=== PATIENT | female | born 1965 | race Caucasian/White ===

== ENCOUNTER 2024-02-28 10:28 | Inpatient (IN) | payer SELFPAY ==
--- NOTE | 2024-02-28 10:50 | ED ---
General Adult HPI - General Chief complaint: Shortness of Breath Stated complaint: SOB Time Seen by Provider: 02/28/24 10:30 Source: patient, RN notes reviewed, old records reviewed Mode of arrival: ambulatory Limitations: no limitations - History of Present Illness Initial comments: This is a 58-year-old female presents to the emergency department stating that she has been having difficulty breathing for over a month. PCP is been placed on antibiotics breathing treatments inhalers and she has not completely resolved. Patient states she comes in today because she is significantly short of breath. Patient states she used to be a smoker but quit about a year ago. Patient denies chest pain or palpitations. Patient states she is had the chills and thinks she had a fever but never taken her temperature. Patient denies any abdominal pain patient has nausea vomiting or diarrhea. - Related Data Allergies Allergy/AdvReac Type Severity Reaction Status Date / Time prednisone Allergy Hallucinati Verified 02/28/24 10:33 ons Review of Systems ROS Statement: Those systems with pertinent positive or pertinent negative responses have been documented in the HPI. ROS Other: All systems not noted in ROS Statement are negative. Past Medical History Past Medical History: No Reported History History of Any Multi-Drug Resistant Organisms: None Reported Past Surgical History: No Surgical Hx Reported Past Psychological History: No Psychological Hx Reported Smoking Status: Former smoker Past Alcohol Use History: None Reported Past Drug Use History: None Reported General Exam - General Exam Comments Initial Comments: GENERAL: Patient is well-developed and well-nourished. Patient is nontoxic and well- hydrated and is in mild distress. ENT: Neck is soft and supple. No significant lymphadenopathy is noted. Oropharynx is clear. Moist mucous membranes. Neck has full range of motion without eliciting any pain. EYES: The sclera were anicteric and conjunctiva were pink and moist. Extraocular movements were intact and pupils were equal round and reactive to light. Eyelids were unremarkable. PULMONARY: Diffuse expiratory wheezing CARDIOVASCULAR: Patient is tachycardic at about 115 beats a minute ABDOMEN: Soft and nontender with normal bowel sounds. SKIN: Skin is clear with no lesions or rashes and otherwise unremarkable. NEUROLOGIC: Patient is alert and oriented x3. Cranial nerves II through XII are grossly intact. Motor and sensory are also intact. Normal speech, volume and content. Symmetrical smile. MUSCULOSKELETAL: Normal extremities with adequate strength and full range of motion. No lower extremity swelling or edema. No calf tenderness. LYMPHATICS: No significant lymphadenopathy is noted PSYCHIATRIC: Normal psychiatric evaluation. Limitations: no limitations Course Vital Signs 02/28/24 02/28/24 02/28/24 10:29 11:00 11:37 Temperature 98.4 F 100.4 F H Pulse Rate 115 H 108 H Respiratory 24 16 22 Rate Blood Pressure 131/82 146/76 O2 Sat by Pulse 90 L 95 Oximetry 02/28/24 02/28/24 02/28/24 11:39 11:50 13:01 Temperature 98.4 F Pulse Rate 99 90 98 Respiratory 20 20 22 Rate Blood Pressure 95/67 O2 Sat by Pulse 93 L Oximetry Medical Decision Making - Medical Decision Making EKG is interpreted by myself but EKG shows sinus tachycardia at 108 bpm CA interval 141 QRS of 76 QT interval 311 QTc is 375. Patient's EKG shows no ST segment ovation or depression. Was pt. sent in by a medical professional or institution (, PA, PROCESSING TECHNOLOGIST, urgent c are, hospital, or fdc...) When possible be specific @ -No Did you speak to anyone other than the patient for history (EMS, parent, family, police, friend...)? What history was obtained from this source @ -No Did you review nursing and triage notes (agree or disagree)? Why? @ -I reviewed and agree with nursing and triage notes Were old charts reviewed (outside hosp., previous admission, EMS record, old EKG, old radiological studies, urgent care reports/EKG's, fdc records)? Report findings @ -No old charts were reviewed Differential Diagnosis (chest pain, altered mental status, abdominal pain women, abdominal pain men, vaginal bleeding, weakness, fever, dyspnea, syncope, h eadache, dizziness, GI bleed, back pain, seizure, CVA, palpatations, mental health, musculoskeletal)? @ -Differential Dyspnea: Coronary syndrome, arrhythmia, tamponade, asthma, COPD, pulmonary embolism, pneumonia, pneumothorax, pulmonary effusion, anaphylaxis, diabetic ketoacidosis, flailed chest, pulmonary contusion, diaphragmatic rupture, anemia, neuromuscular, this is not meant to be an all-inclusive list. EKG interpreted by me (3pts min.). @ -As above X-rays interpreted by me (1pt min.). @ -Chest x-ray shows right lower lobe pneumonia CT interpreted by me (1pt min.). @ -None done U/S interpreted by me (1pt. min.). @ -None done What testing was considered but not performed or refused? (CT, X-rays, U/S, labs)? Why? @ -None What meds were considered but not given or refused? Why? @ -None Did you discuss the management of the patient with other professionals (professionals i.e. DrSalena, PA, PROCESSING TECHNOLOGIST, lab, RT, psych nurse, social services specialist, template layout worker, teacher, hazard mitigation officer, case making machine operator)? Give summary @ -Patient has pneumonia and has bad COPD exacerbation and will be admitted to Dr. Camarena Was smoking cessation discussed for >3mins.? @ -No Was critical care preformed (if so, how long)? @ -Patient received multiple breathing treatments steroids as well as antibiotics for the pneumonia Were there social determinants of health that impacted care today? How? (Homelessness, low income, unemployed, alcoholism, drug addiction, transportation, low edu. Level, literacy, decrease access to med. care, care home, rehab)? @ -No Was there de-escalation of care discussed even if they declined (Discuss DNR or withdrawal of care, Hospice)? DNR status @ -No What co-morbidities impacted this encounter? (DM, HTN, Smoking, COPD, CAD, Cancer, CVA, ARF, Chemo, Hep., AIDS, mental health diagnosis, sleep apnea, mo rbid obesity)? @ -None Was patient admitted / discharged? Hospital course, mention meds given and [place], prescriptions, significant lab abnormalities, going to OR and other pertinent info. @ -Patient initially got 2 breathing treatments and steroids. Patient also got 2 g of Rocephin for the pneumonia. Patient will be placed on inpatient IV antibiotics for the pneumonia and continue breathing treatments and steroids upstairs. Patient will be admitted to Dr. Camarena. Patient will be placed on Leva moses because she already was on Zithromax as an outpatient Undiagnosed new problem with uncertain prognosis? @ -No Drug Therapy requiring intensive monitoring for toxicity (Heparin, Nitro, Insulin, Cardizem)? @ -No Were any procedures done? @ -No Diagnosis/symptom? @ -Pneumonia Acute, or Chronic, or Acute on Chronic? @ -Acute Uncomplicated (without systemic symptoms) or Complicated (systemic symptoms)? @ -Complicated Side effects of treatment? @ -No Exacerbation, Progression, or Severe Exacerbation? @ -No Poses a threat to life or bodily function? How? (Chest pain, [place], DC, pneumonia, PE, COPD, DKA, ARF, appy, cholecystitis, CVA, Diverticulitis, Homicidal, Suicidal, threat to staff... and all critical care pts) @ -Yes this could lead to sepsis and endorgan dysfunction Diagnosis/symptom? @ -COPD exacerbation Acute, or Chronic, or Acute on Chronic? @ -Acute Uncomplicated (without systemic symptoms) or Complicated (systemic symptoms)? @ -Default Side effects of treatment? @ -Needed Exacerbation, Progression, or Severe Exacerbation] @ -Severe exacerbation Poses a threat to life or bodily function? @ -Yes this can lead to hypoxia and endorgan dysfunction - Lab Data Result diagrams: 02/28/24 11:21 02/28/24 11:21 Lab Results 02/28/24 02/28/24 02/28/24 Range/Units 11:21 11:21 11:21 WBC 7.7 (3.8-10.6) k/uL RBC 4.39 (3.80-5.40) m/uL Hgb 13.2 (11.4-16.0) gm/dL Hct 40.0 (34.0-46.0) % MCV 90.9 (80.0-100.0) fL MCH 30.0 (25.0-35.0) pg MCHC 33.0 (31.0-37.0) g/dL RDW 13.7 (11.5-15.5) % Plt Count 197 (150-450) k/uL MPV 7.6 Neutrophils % 67 % Lymphocytes % 16 % Monocytes % 9 % Eosinophils % 4 % Basophils % 1 % Neutrophils # 5.1 (1.3-7.7) k/uL Lymphocytes # 1.2 (1.0-4.8) k/uL Monocytes # 0.7 (0-1.0) k/uL Eosinophils # 0.3 (0-0.7) k/uL Basophils # 0.1 (0-0.2) k/uL PT 11.1 (10.0-12.5) sec INR 1.0 (<1.2) APTT 24.0 (22.0-30.0) sec Sodium 128 L (137-145) mmol/L Potassium 3.9 (3.5-5.1) mmol/L Chloride 95 L (98-107) mmol/L Carbon Dioxide 29 (22-30) mmol/L Anion Gap 4 mmol/L BUN 4 L (7-17) mg/dL Creatinine 0.55 (0.52-1.04) mg/dL Est GFR (CKD-EPI)AfAm >90 (>60 ml/min/1.73 sqM) Est GFR (CKD-EPI)NonAf >90 (>60 ml/min/1.73 sqM) Glucose 130 H (74-99) mg/dL Plasma Lactic Acid Piter (0.7-2.0) mmol/L Calcium 8.2 L (8.4-10.2) mg/dL Magnesium 1.8 (1.6-2.3) mg/dL Total Bilirubin 0.6 (0.2-1.3) mg/dL AST 26 (14-36) U/L ALT 19 (4-34) U/L Alkaline Phosphatase 32 L (38-126) U/L Troponin I (0.000-0.034) ng/mL NT-Pro-B Natriuret Pep 36 pg/mL Total Protein 8.0 (6.3-8.2) g/dL Albumin 3.4 L (3.5-5.0) g/dL 02/28/24 02/28/24 Range/Units 11:21 11:21 WBC (3.8-10.6) k/uL RBC (3.80-5.40) m/uL Hgb (11.4-16.0) gm/dL Hct (34.0-46.0) % MCV (80.0-100.0) fL MCH (25.0-35.0) pg MCHC (31.0-37.0) g/dL RDW (11.5-15.5) % Plt Count (150-450) k/uL MPV Neutrophils % % Lymphocytes % % Monocytes % % Eosinophils % % Basophils % % Neutrophils # (1.3-7.7) k/uL Lymphocytes # (1.0-4.8) k/uL Monocytes # (0-1.0) k/uL Eosinophils # (0-0.7) k/uL Basophils # (0-0.2) k/uL PT (10.0-12.5) sec INR (<1.2) APTT (22.0-30.0) sec Sodium (137-145) mmol/L Potassium (3.5-5.1) mmol/L Chloride (98-107) mmol/L Carbon Dioxide (22-30) mmol/L Anion Gap mmol/L BUN (7-17) mg/dL Creatinine (0.52-1.04) mg/dL Est GFR (CKD-EPI)AfAm (>60 ml/min/1.73 sqM) Est GFR (CKD-EPI)NonAf (>60 ml/min/1.73 sqM) Glucose (74-99) mg/dL Plasma Lactic Acid Piter 1.2 (0.7-2.0) mmol/L Calcium (8.4-10.2) mg/dL Magnesium (1.6-2.3) mg/dL Total Bilirubin (0.2-1.3) mg/dL AST (14-36) U/L ALT (4-34) U/L Alkaline Phosphatase (38-126) U/L Troponin I <0.012 (0.000-0.034) ng/mL NT-Pro-B Natriuret Pep pg/mL Total Protein (6.3-8.2) g/dL Albumin (3.5-5.0) g/dL Disposition Clinical Impression: Acute exacerbation of chronic obstructive pulmonary disease, Pneumonia Disposition: ADMITTED IP TO THIS HOSP Referrals: None,Stated [Primary Care Provider] - 1-2 days Time of Disposition: 14:35
[2024-02-28] MEDS: methylPREDNISolone SOD SUCCI 125 MG/2 ML VIAL IV STA (11:23)
[2024-02-28] MEDS: cefTRIAXone IN SWFI 1,000 MG/10 ML SYRINGE IVP STA ×2 (11:25→11:27)
[2024-02-28] MEDS: IBUPROFEN 600 MG TAB PO STA (11:25)
[2024-02-28] MEDS: ACETAMINOPHEN TAB 500 MG TAB PO STA (11:25)
[2024-02-28] MEDS: SODIUM CHLORIDE 0.9% 1,000 ML IV STA (11:26)
[2024-02-28 11:37] LABS: Basophils # (A) 0.1 k/uL (0-0.2); Basophils % (A) 1 %; Eosinophils # (A) 0.3 k/uL (0-0.7); Eosinophils % (A) 4 %; HGB 13.2 gm/dL (11.4-16.0); Lymphocytes # (A) 1.2 k/uL (1.0-4.8); Lymphocytes % (A) 16 %; MCV 90.9 fL (80.0-100.0); Mean Platelet Volume 7.6; Monocytes # (A) 0.7 k/uL (0-1.0); Monocytes % (A) 9 %; Neutrophils # (A) 5.1 k/uL (1.3-7.7); Neutrophils % (A) 67 %; Platelet Count 197 k/uL (150-450); RBC 4.39 m/uL (3.80-5.40); RDW 13.7 % (11.5-15.5); WBC 7.7 k/uL (3.8-10.6)
[2024-02-28] MEDS: ALBUTEROL NEBULIZED 2.5 MG/3 ML INHALATION STA (11:37)
[2024-02-28 11:48] LABS: ALT 19 U/L (4-34); AST 26 U/L (14-36); African American GFR (CKD) >90 (>60 ml/min/1.73 sqM); Albumin 3.4 g/dL (3.5-5.0); Alkaline Phosphatase 32 U/L (38-126); Anion Gap 4 mmol/L; Blood Urea Nitrogen 4 mg/dL (7-17); Calcium 8.2 mg/dL (8.4-10.2); Carbon Dioxide 29 mmol/L (22-30); Chloride 95 mmol/L (98-107); Glucose 130 mg/dL (74-99); Magnesium 1.8 mg/dL (1.6-2.3); Non-African American GFR(CKD) >90 (>60 ml/min/1.73 sqM); Potassium 3.9 mmol/L (3.5-5.1); Sodium 128 mmol/L (137-145); Total Bilirubin 0.6 mg/dL (0.2-1.3)
[2024-02-28 11:56] LABS: NT-Pro-B-Type Natriuretic Pept 36 pg/mL
[2024-02-28 12:34] LABS: Prothrombin Time 11.1 sec (10.0-12.5)
--- NOTE | 2024-02-28 12:39 | XR ---
EXAMINATION TYPE: XR chest 2V DATE OF EXAM: 02/28/2024 12:19 PM CLINICAL INDICATION:Female, 58 years old with history of difficulty breathing; [facility] COMPARISON: Done TECHNIQUE: XR chest 2V Frontal and lateral views of the chest. FINDINGS: Lungs/Pleura: Increased airspace opacities in the right lower lung. There is no evidence of pleural e ffusion, left focal consolidation, or pneumothorax. Pulmonary vascularity: Unremarkable. Heart/mediastinum: Cardiomediastinal silhouette is unremarkable. Musculoskeletal: No acute osseous pathology. IMPRESSION: Increased right lower lung airspace opacities correlate for pneumonia.
[2024-02-28] MEDS ORDERED: PNEUMONIA PROTOCOL UTILIZED 1 EACH MISC PO PRN (14:35)
[2024-02-28] MEDS ORDERED: IPRATROPIUM-ALBUTEROL 3 ML NEB INHALATION PRN (14:36)
[2024-02-28] MEDS ORDERED: NALOXONE 0.4 MG/ML 1 ML VIAL IVP PRN (14:36)
[2024-02-28] MEDS: LEVOFLOXACIN 750MG-D5W PMX 750 MG in DEXTROSE/WATER 1 150ML.BAG IVPB STA (15:07)
[2024-02-28] MEDS: IPRATROPIUM-ALBUTEROL 3 ML NEB INHALATION SCH (15:47)
[2024-02-28] MEDS: methylPREDNISolone SOD SUCCI 125 MG/2 ML VIAL IV SCH (18:30)
--- NOTE | 2024-02-29 09:03 | XR ---
EXAMINATION TYPE: XR chest 2V DATE OF EXAM: 02/29/2024 COMPARISON: 02/28/2024 INDICATION: Pneumonia TECHNIQUE: Frontal and lateral views of the chest are obtained. FINDINGS: The heart size is normal. The pulmonary vasculature is normal. Mild bibasilar infiltrates are present. Correlate for atelectasis and pneumonia. IMPRESSION: 1. Bibasilar infiltrates. Correlate for atelectasis or pneumonia. Continued follow-up is recommended.
--- NOTE | 2024-02-29 13:15 | P.HPIM ---
History of Present Illness H&P Date: 02/29/24 History of present illness; patient is a 58-year-old lady with no significant past medical history presented the ER because of shortness of breath. Patient stated that she has not been feeling well for the last 1 month. Patient has history of smoking but has never been diagnosed with any lung problem. Patient stated that she has been noticing that she is getting short of breath on exertion as is on rest. Patient also complaining of fevers and chills at home. Denies any cough. Denies any chest pain or palpitations. Because of this shortness of breath, patient saw her PCP who placed her on breathing treatments and steroids. Patient continued to worsen and decided come to the ER Initial lab work done in the ER showed WBC 7.7, hemoglobin 13.2, platelet count 197, sodium 128, potassium 3.9, BUN 4, creatinine 0.55, glucose 130, calcium 8.2, troponin 0.012, albumin 3.4 Chest x-ray done in the ER showed bibasilar infiltrates EKG done in the ER showed heart rate of , no ST segment elevation or depression seen, no T-wave inversions seen. Patient admitted to internal medicine service REVIEW OF SYSTEMS: CONSTITUTIONAL: No fever, no malaise, no fatigue. HEENT: No recent visual problems or hearing problems. Denied any sore throat. CARDIOVASCULAR: As mentioned in HPI PULMONARY: As mentioned in HPI GASTROINTESTINAL: No diarrhea, no nausea, no vomiting, no abdominal pain. NEUROLOGICAL: No headaches, no weakness, no numbness. HEMATOLOGICAL: Denies any bleeding or petechiae. GENITOURINARY: Denies any burning micturition, frequency, or urgency. MUSCULOSKELETAL/RHEUMATOLOGICAL: Denies any joint pain, swelling, or any muscle pain. ENDOCRINE: Denies any polyuria or polydipsia. The rest of the 14-point review of systems is negative. PHYSICAL EXAMINATION: GENERAL: The patient is alert and oriented x3, not in any acute distress. Well developed, well nourished. HEENT: Pupils are round and equally reacting to light. EOMI. No scleral icterus. No conjunctival pallor. Normocephalic, atraumatic. No pharyngeal erythema. No thyromegaly. CARDIOVASCULAR: S1 and S2 present. No murmurs, rubs, or gallops. PULMONARY: Chest is clear to auscultation, no wheezing or crackles. ABDOMEN: Soft, nontender, nondistended, normoactive bowel sounds. No palpable organomegaly. MUSCULOSKELETAL: No joint swelling or deformity. EXTREMITIES: No cyanosis, clubbing, or pedal edema. NEUROLOGICAL: Gross neurological examination did not reveal any focal deficits. SKIN: No rashes. Assessment and plan Acute hypoxemic respiratory failure Bacterial pneumonia COPD exacerbation History of tobacco addiction Monitor vital signs Monitor CBC Monitor CMP Continue telemetry monitoring Continue breathing treatments Start IV Solu-Medrol Start Levaquin Consult pulmonary Labs and medication were reviewed.. Continue same treatment. Continue with symptomatic treatment. Resume home medication. Monitor labs and vitals. DVT and GI prophylaxis. Further recommendations as per clinical course of the patient Dictation was produced using [employer] dictation software. please excuse any grammatical, word or spelling errors. Past Medical History Past Medical History: No Reported History History of Any Multi-Drug Resistant Organisms: None Reported Past Surgical History: No Surgical Hx Reported Past Psychological History: No Psychological Hx Reported Smoking Status: Former smoker Past Alcohol Use History: None Reported Past Drug Use History: None Reported Medications and Allergies Home Medications Medication Instructions Recorded Confirmed Type No Known Home Medications 02/28/24 02/28/24 History Allergies Allergy/AdvReac Type Severity Reaction Status Date / Time prednisone Allergy Mood swings Verified 02/28/24 15:11 Physical Exam Vitals: Vital Signs Temp Pulse Pulse Resp BP BP Pulse Ox 02/29/24 08:13 74 02/29/24 08:00 68 02/29/24 07:39 97.9 F 58 L 19 99/66 92 L 02/29/24 02:00 97.6 F 51 L 103/54 94 L 02/28/24 20:38 73 02/28/24 19:12 98.2 F 83 16 110/68 94 L 02/28/24 17:51 100 22 122/71 95 02/28/24 15:59 72 18 02/28/24 15:53 95 02/28/24 15:48 70 18 02/28/24 15:11 97.9 F 78 20 103/64 94 L 02/28/24 13:01 98.4 F 98 22 95/67 93 L 02/28/24 11:50 90 20 02/28/24 11:39 99 20 06/16/24 11:37 22 02/28/24 11:00 100.4 F H 108 H 16 146/76 95 02/28/24 10:29 98.4 F 115 H 24 131/82 90 L Intake and Output 02/28/24 02/29/24 02/29/24 22:59 06:59 14:59 Other: Voiding Method Toilet # Voids 3 Weight 68.039 kg Results CBC & Chem 7: 02/28/24 11:21 02/28/24 11:21 Labs: Abnormal Lab Results - Last 24 Hours (Table) 02/28/24 Range/Units 11:21 Sodium 128 L (137-145) mmol/L Chloride 95 L (98-107) mmol/L BUN 4 L (7-17) mg/dL Glucose 130 H (74-99) mg/dL Calcium 8.2 L (8.4-10.2) mg/dL Alkaline Phosphatase 32 L (38-126) U/L Albumin 3.4 L (3.5-5.0) g/dL Thrombosis Risk Factor Assmnt - Choose All That Apply Any of the Below Risk Factors Present?: Yes Each Factor Represents 1 point: Abnormal pulmonary function (COPD), Age 41-60 years Other Risk Factors: Yes Each Risk Factor Represents 3 Points: Family history of DVT/PE Other congenital or acquired thrombophilia - If yes, enter type in comment: No Thrombosis Risk Factor Assessment Total Risk Factor Score: 5 Thrombosis Risk Factor Assessment Level: High Risk
[2024-02-29] MEDS: LEVOFLOXACIN 750 MG TAB PO SCH (13:43)
--- NOTE | 2024-02-29 14:42 | P.CNPUL ---
History of Present Illness Consult date: 02/29/24 Requesting physician: Lefty Camarena Reason for consult: dyspnea Chief complaint: Shortness of breath, cough, congestion History of present illness: This is a pleasant 58-year-old female patient with a known history of chronic tobacco dependence of over 30 years however quit 1 year ago. She currently does not have a primary care provider. She states she has been having ongoing issues with shortness of breath, cough congestion for approximately 2 months now. Over the past several days her symptoms have become much worse and she presented here to the ER yesterday. Chest x-ray reveals evidence of bibasilar infiltrates. Possible atelectasis versus pneumonia. Count 7.7. Hemoglobin 13.2. Platelets 197. Sodium 128. Potassium 3.9. Bicarb 29. BUN 4. Creatinine 0.55. Glucose 130. Troponin negative x 1. proBNP 36. Urine Legionella antigen negative. She has been initiated on DuoNeb ventilations, Solu-Medrol and antibiotics in the form of Levaquin. She is seen in consultation on the regular medical floor. She is awake and alert in no acute distress. She does have a loose nonpr oductive cough. She did have a Tmax of 100.4. Currently afebrile. Hemodynamically stable. Review of Systems REVIEW OF SYSTEMS: CONSTITUTIONAL: Denies any recent significant weight loss or weight gain. EYES: Denies change in vision. EARS, NOSE, MOUTH, THROAT: Denies headaches, denies sore throat. CARDIOVASCULAR: Denies chest pain, palpitations or syncopal episodes. RESPIRATORY: Positive for shortness of breath, cough, congestion no hemoptysis. GASTROINTESTINAL: Denies change in appetite, denies abdominal pain GENITOURINARY: Denies hematuria, denies infections. MUSKULOSKELETAL: Denies pain, denies swelling. INTEGUMENTARY: Denies rash, denies eczema. NEUROLOGICAL: Denies recent memory loss, no recent seizure activity. PSYCHIATRIC: Denies anxiety, denies depression. HEMATOLOGIC/LYMPHATIC: Denies anemia, denies enlarged lymph nodes. Past Medical History Past Medical History: No Reported History History of Any Multi-Drug Resistant Organisms: None Reported Past Surgical History: No Surgical Hx Reported Past Psychological History: No Psychological Hx Reported Smoking Status: Former smoker Past Alcohol Use History: None Reported Past Drug Use History: None Reported Medications and Allergies Home Medications Medication Instructions Recorded Confirmed Type No Known Home Medications 02/28/24 02/28/24 History Allergies Allergy/AdvReac Type Severity Reaction Status Date / Time prednisone Allergy Mood swings Verified 02/28/24 15:11 Physical Exam Vitals: Vital Signs Temp Pulse Pulse Resp BP BP Pulse Ox 02/29/24 12:10 76 02/29/24 11:58 70 02/29/24 08:13 74 02/29/24 08:00 68 02/29/24 07:40 58 L 19 02/29/24 07:39 97.9 F 58 L 19 99/66 92 L 02/29/24 02:00 97.6 F 51 L 103/54 94 L 02/28/24 20:38 73 02/28/24 19:12 98.2 F 83 16 110/68 94 L 02/28/24 17:51 100 22 122/71 95 02/28/24 15:59 72 18 02/28/24 15:53 95 02/28/24 15:48 70 18 02/28/24 15:11 97.9 F 78 20 103/64 94 L Intake and Output 02/28/24 02/29/24 02/29/24 22:59 06:59 14:59 Other: Voiding Method Toilet Toilet # Voids 3 Weight 68.039 kg GENERAL EXAM: Alert, pleasant 58-year-old female, on 2 L nasal cannula, fairly comfortable in no apparent distress. HEAD: Normocephalic. EYES: Normal reaction of pupils, equal size. NOSE: Clear with pink turbinates. THROAT: No erythema or exudates. NECK: No masses, no JVD. CHEST: No chest wall deformity. LUNGS: Equal air entry with bilateral scattered rhonchi. CVS: S1 and S2 normal with no audible murmur, regular rhythm. ABDOMEN: No hepatosplenomegaly, normal bowel sounds, no guarding or rigidity. SPINE: No scoliosis or deformity SKIN: No rashes CENTRAL NERVOUS SYSTEM: No focal deficits, tone is normal in all 4 extremities. EXTREMITIES: There is no peripheral edema. No clubbing, no cyanosis. Peripheral pulses are intact. Results - Laboratory Findings CBC and BMP: 02/28/24 11:21 02/28/24 11:21 PT/INR, D-dimer PT 11.1 sec (10.0-12.5) 02/28/24 11:21 INR 1.0 (<1.2) 02/28/24 11:21 Abnormal lab findings: Abnormal Labs 02/28/24 11:21 Sodium 128 L Chloride 95 L BUN 4 L Glucose 130 H Calcium 8.2 L Alkaline Phosphatase 32 L Albumin 3.4 L - Diagnostic Findings Chest x-ray: image reviewed Assessment and Plan Assessment: Acute hypoxic respiratory failure secondary to an acute community-acquired pneumonia Acute exacerbation of suspected chronic obstructive pulmonary disease secondary to above Chronic tobacco dependence of greater than 30 years however quit 1 year ago Hyponatremia, suspect hypovolemic Plan: The patient was seen and evaluated Chest x-ray, labs and medications reviewed Check a procalcitonin Continue Levaquin for now Add normal saline at 75 MLS per hour Add Symbicort Continue DuoNeb inhalations Continue Solu-Medrol Titrate down the FiO2 as tolerated Would benefit from outpatient pulmonary workup including full pulmonary function testing Educated regarding the importance of acquiring a primary care provider for health maintenance I have personally seen and examined the patient, performed the documentation and the assessment and plan as written. Number of minutes spent on the visit: 20.
[2024-02-29] MEDS: SODIUM CHLORIDE 0.9% 1,000 ML IV SCH (20:06)
[2024-02-29] MEDS: SYMBICORT 160-4.5 MCG INHALER INHALATION SCH (21:27)
[2024-03-01 08:27] LABS: Basophils # (A) 0.02 X 10*3/uL (0.00-0.10); Basophils % (A) 0.1 %; Eosinophils # (A) 0 X 10*3/uL (0.04-0.35); Eosinophils % (A) 0 %; HCT 34.5 % (37.2-46.3); HGB 11.5 g/dL (12.0-15.0); Lymphocytes # (A) 1.17 X 10*3/uL (0.90-5.00); Lymphocytes % (A) 6.1 %; MCH 29.9 pg (27.0-32.0); MCHC 33.3 g/dL (32.0-37.0); MCV 89.6 FL (80.0-97.0); Mean Platelet Volume 10.1 FL (9.5-12.2); Monocytes % (A) 2.1 %; NRBC Per 100 WBC 0 X 10*3/uL (0.00-0.01); Neutrophils # (A) 17.33 X 10*3/uL (1.80-7.70); Platelet Count 245 X 10*3/uL (140-440); RBC 3.85 X 10*6/uL (4.10-5.20); RDW 13.8 % (11.5-14.5); WBC 19.06 X 10*3/uL (4.50-10.00)
[2024-03-01 08:38] LABS: ALT 16 U/L (8-44); AST 15 U/L (13-35); Albumin 3.4 g/dL (3.8-4.9); Albumin/Globulin Ratio 0.87 Ratio (1.60-3.17); Alkaline Phosphatase 18 U/L (41-126); BUN/Creat Ratio 18.67 Ratio (12.00-20.00); Blood Urea Nitrogen 11.2 mg/dL (9.0-27.0); Calcium 8.5 mg/dL (8.7-10.3); Carbon Dioxide 24.4 mmol/L (21.6-31.8); Chloride 98 mmol/L (96-109); Globulin 3.9 g/dL (1.6-3.3); Glucose 148 mg/dL (70-110); Potassium 4.4 mmol/L (3.5-5.5); Sodium 133 mmol/L (135-145); Total Bilirubin <0.2 mg/dL (0.3-1.2); Total Protein 7.3 g/dL (6.2-8.2)
[2024-03-01] MEDS: DIPHENOX-ATROP 2.5-0.025 MG 1 EACH TAB PO PRN (12:33)
--- NOTE | 2024-03-01 13:16 | P.PN ---
Subjective Progress Note Date: 03/01/24 This is a pleasant 58-year-old female patient with a known history of chronic tobacco dependence of over 30 years however quit 1 year ago. She currently does not have a primary care provider. She states she has been having ongoing issues with shortness of breath, cough congestion for approximately 2 months now. Over the past several days her symptoms have become much worse and she presented here to the ER yesterday. Chest x-ray reveals evidence of bibasilar infiltrates. Possible atelectasis versus pneumonia. Count 7.7. Hemoglobin 13.2. Platelets 197. Sodium 128. Potassium 3.9. Bicarb 29. BUN 4. Creatinine 0.55. Glucose 130. Troponin negative x 1. proBNP 36. Urine Legionella antigen negative. She has been initiated on DuoNeb ventilations, Solu-Medrol and antibiotics in the form of Levaquin. She is seen in consultation on the regular medical floor. She is awake and alert in no acute distress. She does have a loose nonproductive cough. She did have a Tmax of 100.4. Currently afebrile. Hemodynamically stable. The patient is seen today March 01, 2024 in follow-up on the regular medical floor. She is currently sitting up in bed. Awake and alert in no acute distress. Breathing easier today compared to yesterday. Not quite back to her baseline. She is maintaining O2 saturations in the 90s on 2 L/min per nasal cannula. She remains on DuoNeb ventilations, Symbicort, Solu-Medrol. Antibiotics in the form of Levaquin. Procalcitonin 0.15. Blood cultures revealed no growth. White count 19.0. Hemoglobin 11.5. Platelets 245. Sodium 133. Potassium 4.4. Bicarb 24.4. BUN 11. Creatinine 0.6. Glucose 148. Objective - Vital Signs Vital signs: Vital Signs Temp 98.1 F 03/01/24 07:38 Pulse 70 03/01/24 11:47 Resp 18 03/01/24 07:38 BP 123/80 03/01/24 07:38 Pulse Ox 94 L 03/01/24 08:35 FiO2 Intake & Output 02/29/24 03/01/24 03/01/24 18:59 06:59 18:59 Intake Total 1050 Balance 1050 Intake: Intake, IV Titration 600 Amount Sodium Chloride 0.9% 1, 600 000 ml @ 75 mls/hr IV . [id number] [facility] Rx#:[id number] Oral 450 Other: Voiding Method Toilet Toilet Toilet # Voids 6 1 2 # Bowel Movements 1 - Exam GENERAL EXAM: Alert, active 58-year-old female, on 2 L nasal cannula, comfortable in no apparent distress. HEAD: Normocephalic. EYES: Normal reaction of pupils, equal size. NOSE: Clear with pink turbinates. THROAT: No erythema or exudates. NECK: No masses, no JVD. CHEST: No chest wall deformity. LUNGS: Equal air entry with bilateral scattered rhonchi. CVS: S1 and S2 normal with no audible murmur, regular rhythm. ABDOMEN: No hepatosplenomegaly, normal bowel sounds, no guarding or rigidity. SPINE: No scoliosis or deformity SKIN: No rashes CENTRAL NERVOUS SYSTEM: No focal deficits, tone is normal in all 4 extremities. EXTREMITIES: There is no peripheral edema. No clubbing, no cyanosis. Peripheral pulses are intact. - Labs CBC & Chem 7: 03/01/24 04:27 03/01/24 04:27 Labs: Abnormal Lab Results - Last 24 Hours (Table) 02/29/24 03/01/24 03/01/24 Range/Units 11:45 04:27 04:27 WBC 19.06 H (4.50-10.00) X 10*3/uL RBC 3.85 L (4.10-5.20) X 10*6/uL Hgb 11.5 L (12.0-15.0) g/dL Hct 34.5 L (37.2-46.3) % Immature Gran # 0.14 H (0.00-0.04) X 10*3/uL Neutrophils # 17.33 H (1.80-7.70) X 10*3/uL Eosinophils # 0 L (0.04-0.35) X 10*3/uL Sodium 133 L (135-145) mmol/L Glucose 148 H (70-110) mg/dL Calcium 8.5 L (8.7-10.3) mg/dL Total Bilirubin <0.2 L (0.3-1.2) mg/dL Alkaline Phosphatase 18 L (41-126) U/L Albumin 3.4 L (3.8-4.9) g/dL Globulin 3.9 H (1.6-3.3) g/dL Albumin/Globulin Ratio 0.87 L (1.60-3.17) Ratio Procalcitonin 0.15 H (0.02-0.09) ng/mL Microbiology - Last 24 Hours (Table) 02/28/24 11:20 Blood Culture - Preliminary Blood 02/28/24 10:46 Blood Culture - Preliminary Blood Assessment and Plan Assessment: Acute hypoxic respiratory failure secondary to an acute community-acquired pneumonia. Procalcitonin 0.15 Acute exacerbation of suspected chronic obstructive pulmonary disease secondary to above Chronic tobacco dependence of greater than 30 years however quit 1 year ago Hyponatremia, suspect hypovolemic, improving Plan: The patient was seen and evaluated Labs and medications reviewed Continue Levaquin Continue normal saline at 75 MLS per hour Continue bronchodilators and steroids Titrate down the FiO2 as tolerated Increase her activity as tolerated Probable discharge in the a.m. We will continue to follow I have personally seen and examined the patient, performed the documentation and the assessment and plan as written. Number of minutes spent on the visit: 10.
--- NOTE | 2024-03-01 14:45 | P.PN ---
Subjective Progress Note Date: 03/01/24 patient is a 58-year-old lady with no significant past medical history presented the ER because of shortness of breath. Patient stated that she has not been feeling well for the last 1 month. Patient has history of smoking but has never been diagnosed with any lung problem. Patient stated that she has been noticing that she is getting short of breath on exertion as is on rest. Patient also complaining of fevers and chills at home. Denies any cough. Denies any chest pain or palpitations. Because of this shortness of breath, patient saw her PCP who placed her on breathing treatments and steroids. Patient continued to worsen and decided come to the ER Initial lab work done in the ER showed WBC 7.7, hemoglobin 13.2, platelet count 197, sodium 128, potassium 3.9, BUN 4, creatinine 0.55, glucose 130, calcium 8.2, troponin 0.012, albumin 3.4 Chest x-ray done in the ER showed bibasilar infiltrates EKG done in the ER showed heart rate of , no ST segment elevation or depression seen, no T-wave inversions seen. Patient admitted to internal medicine service 03/01. Patient seen and examined.Patient states her breathing is improved. States she feels much better compared to yesterday REVIEW OF SYSTEMS: CONSTITUTIONAL: No fever, no malaise,. CARDIOVASCULAR: No chest pain, no palpitations, no syncope. PULMONARY: As mentioned above GASTROINTESTINAL: No diarrhea, no nausea, no vomiting, no abdominal pain. NEUROLOGICAL: No headaches, no weakness, PHYSICAL EXAMINATION: GENERAL: The patient is alert and oriented x3, not in any acute distress. Well developed, well nourished. HEENT: Pupils are round and equally reacting to light. EOMI. No scleral icterus. No conjunctival pallor. Normocephalic, atraumatic. No pharyngeal erythema. No thyromegaly. CARDIOVASCULAR: S1 and S2 present. No murmurs, rubs, or gallops. PULMONARY: Chest is clear to auscultation, no wheezing or crackles. ABDOMEN: Soft, nontender, nondistended, normoactive bowel sounds. No palpable organomegaly. MUSCULOSKELETAL: No joint swelling or deformity. EXTREMITIES: No cyanosis, clubbing, or pedal edema. NEUROLOGICAL: Gross neurological examination did not reveal any focal deficits. SKIN: No rashes. Assessment and plan Acute hypoxemic respiratory failure Bacterial pneumonia COPD exacerbation History of tobacco addiction Monitor vital signs Monitor CBC Monitor CMP Continue telemetry monitoring Continue breathing treatments Continue IV Solu-Medrol Continue Levaquin Pulmonology following Labs and medication were reviewed.. Continue same treatment. Continue with symptomatic treatment. Resume home medication. Monitor labs and vitals. DVT and GI prophylaxis. Further recommendations as per clinical course of the patient Dictation was produced using [employer] dictation software. please excuse any grammatical, word or spelling errors. Objective - Vital Signs Vital signs: Vital Signs Temp 98.1 F 03/01/24 07:38 Pulse 72 03/01/24 08:45 Resp 18 03/01/24 07:38 BP 123/80 03/01/24 07:38 Pulse Ox 94 L 03/01/24 08:35 FiO2 Intake & Output 02/29/24 03/01/24 03/01/24 18:59 06:59 18:59 Intake Total 1050 Balance 1050 Intake: Intake, IV Titration 600 Amount Sodium Chloride 0.9% 1, 600 000 ml @ 75 mls/hr IV . [id number] [facility] Rx#:[id number] Oral 450 Other: Voiding Method Toilet Toilet Toilet # Voids 6 1 2 # Bowel Movements 1 - Labs CBC & Chem 7: 03/01/24 04:27 03/01/24 04:27 Labs: Abnormal Lab Results - Last 24 Hours (Table) 02/29/24 03/01/24 03/01/24 Range/Units 11:45 04:27 04:27 WBC 19.06 H (4.50-10.00) X 10*3/uL RBC 3.85 L (4.10-5.20) X 10*6/uL Hgb 11.5 L (12.0-15.0) g/dL Hct 34.5 L (37.2-46.3) % Immature Gran # 0.14 H (0.00-0.04) X 10*3/uL Neutrophils # 17.33 H (1.80-7.70) X 10*3/uL Eosinophils # 0 L (0.04-0.35) X 10*3/uL Sodium 133 L (135-145) mmol/L Glucose 148 H (70-110) mg/dL Calcium 8.5 L (8.7-10.3) mg/dL Total Bilirubin <0.2 L (0.3-1.2) mg/dL Alkaline Phosphatase 18 L (41-126) U/L Albumin 3.4 L (3.8-4.9) g/dL Globulin 3.9 H (1.6-3.3) g/dL Albumin/Globulin Ratio 0.87 L (1.60-3.17) Ratio Procalcitonin 0.15 H (0.02-0.09) ng/mL Microbiology - Last 24 Hours (Table) 02/28/24 11:20 Blood Culture - Preliminary Blood 02/28/24 10:46 Blood Culture - Preliminary Blood
[2024-03-01] MEDS: MELATONIN 5 MG TABLET PO SCH (20:16)
[2024-03-02 07:23] VITALS: BP 124/67; RESP 18; TEMP 97.2
--- NOTE | 2024-03-02 11:24 | P.PN ---
Subjective Progress Note Date: 03/02/24 This is a pleasant 58-year-old female patient with a known history of chronic tobacco dependence of over 30 years however quit 1 year ago. She currently does not have a primary care provider. She states she has been having ongoing issues with shortness of breath, cough congestion for approximately 2 months now. Over the past several days her symptoms have become much worse and she presented here to the ER yesterday. Chest x-ray reveals evidence of bibasilar infiltrates. Possible atelectasis versus pneumonia. Count 7.7. Hemoglobin 13.2. Platelets 197. Sodium 128. Potassium 3.9. Bicarb 29. BUN 4. Creatinine 0.55. Glucose 130. Troponin negative x 1. proBNP 36. Urine Legionella antigen negative. She has been initiated on DuoNeb ventilations, Solu-Medrol and antibiotics in the form of Levaquin. She is seen in consultation on the regular medical floor. She is awake and alert in no acute distress. She does have a loose nonproductive cough. She did have a Tmax of 100.4. Currently afebrile. Hemodynamically stable. The patient is seen today March 01, 2024 in follow-up on the regular medical floor. She is currently sitting up in bed. Awake and alert in no acute distress. Breathing easier today compared to yesterday. Not quite back to her baseline. She is maintaining O2 saturations in the 90s on 2 L/min per nasal cannula. She remains on DuoNeb ventilations, Symbicort, Solu-Medrol. Antibiotics in the form of Levaquin. Procalcitonin 0.15. Blood cultures revealed no growth. White count 19.0. Hemoglobin 11.5. Platelets 245. Sodium 133. Potassium 4.4. Bicarb 24.4. BUN 11. Creatinine 0.6. Glucose 148. The patient is seen today March 02, 2024 in follow-up on the regular medical floor. She is awake and alert in no acute distress. Up ambulating in her room. Denies any worsening shortness of breath, cough or congestion. Feeling nearly back to her baseline. She is maintaining good O2 saturations in the 90s on 2 L/min per nasal cannula. Blood cultures revealed no growth. No new labs today. She remains on DuoNeb inhalations, Symbicort, IV Solu-Medrol and antibiotics in the form of Levaquin. Objective - Vital Signs Vital signs: Vital Signs Temp 97.2 F L 03/02/24 07:23 Pulse 94 03/02/24 08:39 Resp 18 03/02/24 08:00 BP 124/67 03/02/24 07:23 Pulse Ox 93 L 03/02/24 08:23 FiO2 Intake & Output 03/01/24 03/02/24 03/02/24 18:59 06:59 18:59 Intake Total 500 Balance 500 Intake: Oral 500 Other: Voiding Method Toilet Toilet Toilet # Voids 5 3 - Exam GENERAL EXAM: Alert, very pleasant 58-year-old female, on 2 L nasal cannula, in no apparent distress. HEAD: Normocephalic. EYES: Normal reaction of pupils, equal size. NOSE: Clear with pink turbinates. THROAT: No erythema or exudates. NECK: No masses, no JVD. CHEST: No chest wall deformity. LUNGS: Equal air entry with bilateral scattered rhonchi. CVS: S1 and S2 normal with no audible murmur, regular rhythm. ABDOMEN: No hepatosplenomegaly, normal bowel sounds, no guarding or rigidity. SPINE: No scoliosis or deformity SKIN: No rashes CENTRAL NERVOUS SYSTEM: No focal deficits, tone is normal in all 4 extremities. EXTREMITIES: There is no peripheral edema. No clubbing, no cyanosis. Peripheral pulses are intact. - Labs CBC & Chem 7: 03/01/24 04:27 03/01/24 04:27 Labs: Microbiology - Last 24 Hours (Table) 02/28/24 11:20 Blood Culture - Preliminary Blood 02/28/24 10:46 Blood Culture - Preliminary Blood Assessment and Plan Assessment: Acute hypoxic respiratory failure secondary to an acute community-acquired pneumonia. Procalcitonin 0.15 Acute exacerbation of suspected chronic obstructive pulmonary disease secondary to above Chronic tobacco dependence of greater than 30 years however quit 1 year ago Hyponatremia, suspect hypovolemic, improving Plan: The patient was seen and evaluated Medications reviewed Cleared for discharge from the pulmonary standpoint Continue DuoNeb inhalations, Symbicort Complete a prednisone taper Complete a course of antibiotics Follow-up in our office in 1 week I have personally seen and examined the patient, performed the documentation and the assessment and plan as written. Number of minutes spent on the visit: 10.
[2024-03-02 11:43] VITALS: PULSE 94
--- NOTE | 2024-03-02 13:07 | P.DS ---
Providers Date of admission: 02/28/24 14:35 Expected date of discharge: 03/02/24 Attending physician: Lefty Camarena MD Consults: 02/29/24 10:04 Consult Physician Routine Consulting Provider: Nicol Mccarty Consult Reason/Comments: Acute COPD exacerbation Do you want consulting provider notified?: Yes Primary care physician: Stated None Hospital Course: Discharge diagnoses; Acute hypoxemic respiratory failure Bacterial pneumonia COPD exacerbation History of tobacco addiction Hospital course; patient is a 58-year-old lady with no significant past medical history presented the ER because of shortness of breath. Patient stated that she has not been feeling well for the last 1 month. Patient has history of smoking but has never been diagnosed with any lung problem. Patient stated that she has been noticing that she is getting short of breath on exertion as is on rest. Patient also complaining of fevers and chills at home. Denies any cough. Denies any chest pain or palpitations. Because of this shortness of breath, patient saw her PCP who placed her on breathing treatments and steroids. Patient continued to worsen and decided come to the ER Initial lab work done in the ER showed WBC 7.7, hemoglobin 13.2, platelet count 197, sodium 128, potassium 3.9, BUN 4, creatinine 0.55, glucose 130, calcium 8.2, troponin 0.012, albumin 3.4 Chest x-ray done in the ER showed bibasilar infiltrates EKG done in the ER showed heart rate of , no ST segment elevation or depression seen, no T-wave inversions seen. Patient admitted to internal medicine service 03/01. Patient seen and examined.Patient states her breathing is improved. States she feels much better compared to yesterday 03/02. Patient seen and examined. Feeling much better. Being discharged on L evaquin for 2 more days and tapering dose of prednisone and Ventolin and Symbicort. Outpatient follow-up with pulmonology PHYSICAL EXAMINATION: GENERAL: The patient is alert and oriented x3, not in any acute distress. Well developed, well nourished. HEENT: Pupils are round and equally reacting to light. EOMI. No scleral icterus. No conjunctival pallor. Normocephalic, atraumatic. No pharyngeal erythema. No thyromegaly. CARDIOVASCULAR: S1 and S2 present. No murmurs, rubs, or gallops. PULMONARY: Chest is clear to auscultation, no wheezing or crackles. ABDOMEN: Soft, nontender, nondistended, normoactive bowel sounds. No palpable organomegaly. MUSCULOSKELETAL: No joint swelling or deformity. EXTREMITIES: No cyanosis, clubbing, or pedal edema. NEUROLOGICAL: Gross neurological examination did not reveal any focal deficits. SKIN: No rashes. Dictation was produced using [employer] dictation software. please excuse any grammatical, word or spelling errors. Plan - Discharge Summary Discharge Rx Participant: No New Discharge Prescriptions: New Levofloxacin [Levaquin] 750 mg PO DAILY 2 Days #2 tab predniSONE 10 mg PO DAILY 8 Days #20 tab Budesonide-Formot 160-4.5 Mcg [Symbicort 160-4.5 Mcg Inhaler] 2 puff INHALATION RT-BID #1 each Albuterol Inhaler [Ventolin Hfa Inhaler] 2 puff INHALATION Q6H PRN 30 Days #1 each PRN Reason: Shortness Of Breath Or Wheezing Discharge Medication List Albuterol Inhaler [Ventolin Hfa Inhaler] 2 puff INHALATION Q6H PRN 30 Days #1 each 03/02/24 [Rx] Budesonide-Formot 160-4.5 Mcg [Symbicort 160-4.5 Mcg Inhaler] 2 puff INHALATION RT-BID #1 each 03/02/24 [Rx] Levofloxacin [Levaquin] 750 mg PO DAILY 2 Days #2 tab 03/02/24 [Rx] predniSONE 10 mg PO DAILY 8 Days #20 tab 03/02/24 [Rx] Follow up Appointment(s)/Referral(s): Nicol Mccarty MD [STAFF PHYSICIAN] - 1 Week None,Stated [Primary Care Provider] - 1-2 days
[2024-03-03] MEDS ORDERED: predniSONE 20 MG TAB PO SCH (09:00)
== END 2024-03-02 13:53 | disposition home or self-care (01) | DRG 193 ==
LOC: EC 10:28 → 4SSUR 14:35
PROVIDERS: ADMIT Internal Medicine; ATTEND Internal Medicine
DX: J15.9 Unspecified bacterial pneumonia (principal); J96.01 Acute respiratory failure with hypoxia; J44.0 Chronic obstructive pulmonary disease with (acute) lower respiratory infection; J44.1 Chronic obstructive pulmonary disease with (acute) exacerbation; E87.1 Hypo-osmolality and hyponatremia; E86.1 Hypovolemia; Z88.8 Allergy status to other drugs, medicaments and biological substances; Z87.891 Personal history of nicotine dependence
CPT/HCPCS: 36415; 71046; 80053; 83605; 83735; 83880; 84145; 84484; 85025; 85610; 85730; 87040; 87070; 87205; 87449; 93005; 94640; 94760; 96361; 96365; 96366; 96375; 99285

== ENCOUNTER → 2024-05-24 | Outpatient (CLI) | payer OTHER ==
--- NOTE | 2024-05-24 10:52 | CT ---
INDICATION: Patient age:Female; 59 years old; Reason for study: J18.1 pneumonia; [facility]. COMPARISON: Chest radiograph 05/10/2024, 03/09/2024 TECHNIQUE: Multiple thin axial images were obtained through the chest at selected intervals. Prone and supine in spiratory along with supine expiratory images were submitted for review. Please note that due to inte rval acquisition images as defined by high-resolution CT protocol the entire lung parenchyma is not e valuated, therefore small nodular densities may not be visualized. Evaluation of vascular structures , viscera and lymphatics is limited due to lack of intravenous contrast administration. One or more C T dose reduction strategies were utilized during this examination. Total DLP 752 mGycm. FINDINGS: LUNGS: No honeycombing or architectural distortion. Multifocal scattered reticular nodular opacities throughout the lungs. Distinct more rounded nodules identified within the left lower lobe measuring 3 .9 mm (series 11 image 22), peripheral right lower lobe measuring 5.8 mm (series 11, image 221), and anterior right middle lobe measuring 7.2 mm (series 11, image 142). No cavitary lesions identified. LARGE AIRWAYS: Trace secretions identified within the right mainstem bronchus. Central airways are p atent. No dynamic airway collapse on expiratory imaging. PLEURA: No pleural effusion or thickening. HEART AND PERICARDIUM: Heart is normal in size. Small anterior pericardial effusion. MEDIASTINUM AND KERI: No mediastinal or hilar lymphadenopathy or soft tissue mass. VESSELS: The thoracic aorta is normal in course and caliber. CHEST WALL AND DIAPHRAGM: Normal. LOWER NECK: Normal. UPPER ABDOMEN: Left renal exophytic 3.1 cm cyst. MUSCULOSKELETAL: No acute fracture. IMPRESSION: Nonspecific diffuse reticular nodular opacities throughout the lungs with a few pulmonary nodules. Et iologies include infectious/inflammatory process such as sarcoidosis versus pneumoconiosis versus aty pical pneumonia versus other. No evidence of honeycombing or significant pulmonary fibrosis.
== END | disposition home or self-care (01) ==
LOC: RADCTMAIN 09:47
PROVIDERS: ATTEND Internal Medicine
DX: J18.1 Lobar pneumonia, unspecified organism
CPT/HCPCS: 71250